=== PATIENT | female | born 1955 | race Caucasian/White ===

== ENCOUNTER 2025-01-11 11:04 | Day surgery (SDC) | payer OTHER, MEDICAID, SELFPAY ==
--- NOTE | 2025-01-08 08:10 | EKG_ITS ---
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
[2025-01-08 11:13] VITALS: BMI 22.9
[2025-01-08 12:11] LABS: Collection Type, Urine Clean Catch; Squamous Epithelial Cell,Urine 0 /hpf (0-5)
[2025-01-08 13:19] LABS: Basophils # (Auto) 0.1 Thou/mm3 (0.0-0.2); Basophils % (Auto) 1 % (0-2.5); Eosinophils # (Auto) 0.5 Thou/mm3 (0.0-0.5); Eosinophils % (Auto) 7 % (0-10); Hematocrit 40.4 % (36.0-46.0); Hemoglobin 13.7 g/dL (12.0-16.0); Immature Granulocytes % (Auto) 0 % (0-0); Immature Granulocytes Auto 0.02 Thou/mm3 (0.00-0.00); Lymphocytes # (Auto) 2.4 Thou/mm3 (1.0-4.8); Lymphocytes % (Auto) 35 % (10-50); Mean Corpuscular HGB Conc 33.9 g/dl (31.0-37.0); Mean Corpuscular Hemoglobin 29.6 pg (25.0-35.0); Mean Corpuscular Volume 87 fL (80-100); Monocytes # (Auto) 0.5 Thou/mm3 (0.0-0.8); Monocytes % (Auto) 7 % (0-12); Neutrophils # (Auto) 3.4 Thou/mm3 (1.8-7.7); Neutrophils % (Auto) 50 % (37-80); Nucleated Red Blood Cell % 0 /100 WBC (0); Platelet Count 346 Thou/mm3 (140-440); Red Blood Count 4.63 Miln/mm3 (4.00-5.20); White Blood Count 6.8 Thou/mm3 (3.6-11.0)
[2025-01-08 13:24] LABS: Amorphous Crystals,Urine Present (Absent); Bilirubin,Urine Negative (Negative); Blood,Urine Negative (Negative); Color,Urine Lt-Yellow (Lt Yel-Yel); Glucose, Urine Negative (Negative); Ketones,Urine Negative (Negative); Leukocyte Esterase,Urine Negative (Negative); Nitrite,Urine Negative (Negative); PH,Urine 7.5 (5.0-7.0); Protein,Urine Negative (Neg - Trace); RBC,Urine 4 /hpf (0-3); Specific Gravity,Urine 1.023 (1.001-1.035); Urobilinogen,Urine Negative mg/dL (0.0-1.0); WBC,Urine 11 /hpf (0-5)
[2025-01-08 13:26] LABS: INR 1.1 (0.9-1.3); Partial Thromboplastin Time 30.5 Seconds (22.0-36.0); Prothrombin Time 11.6 Seconds (9.0-12.2)
[2025-01-08 13:31] LABS: Alanine Aminotransferase 19 U/L (10-49); Albumin, Serum 5.2 gm/dL (3.4-4.8); Albumin/Globulin Ratio 2.1 (1.2-2.2); Alkaline Phosphatase 64 U/L (46-116); Anion Gap 9 (7-16); Aspartate Amino Transferase 26 U/L (0-34); BUN/Creatinine Ratio 19 Ratio (12-20); Bilirubin,Total 0.7 mg/dL (0.3-1.2); Blood Urea Nitrogen 17 mg/dL (9-23); Calcium 10.4 mg/dL (8.3-10.6); Calcium (Corrected) 10.4 mg/dL (8.5-10.1); Carbon Dioxide 28.3 mMol/L (20.0-31.0); Chloride 102 mMol/L (98-107); Creatinine (Component) 0.9 mg/dL (0.6-1.3); Estimated Creatinine Clearance 47.3 mL/min (>60); Globulin 2.5 gm/dL (2.3-3.5); Glucose 100 mg/dL (74-106); Osmolality,Calculated 279 (275-295); Potassium 4.3 mMol/L (3.4-5.1); Sodium 139 mMol/L (136-145); Total Protein 7.7 gm/dL (5.7-8.2); eGFR > 60 See Note
[2025-01-08 13:32] LABS: Clarity,Urine Hazy (Clear/Hazy)
--- NOTE | 2025-01-08 14:32 | SUR.PREOP ---
Cardiac records and history reviewed with Dr Newby.
[2025-01-11] VITALS (8 sets, daily range): BP systolic 96–113; BP diastolic 63–73; PULSE 74–96; RESP 14–20; TEMP 36.7–36.9; O2SAT 95–99; BMI 22.8
--- NOTE | 2025-01-11 15:35 | PD.SUROPNT ---
Date of Procedure 01/11/25 Pre Op Diagnosis Cholecystitis cholelithiasis Post Op Diagnosis Cholecystitis cholelithiasis with significant amount of peritoneal adhesions Procedure Laparoscopic cholecystectomy and laparoscopic lysis of adhesions on January 11, 2025 Findings This patient has a distended gallbladder with stones. A significant amount of adhesions were present to the gallbladder as well as to the right upper quadrant of the abdomen. This required extensive lysis of adhesions laparoscopically in order to open the operative field. There were no other positive findings. Procedure Description In the preop area the procedure was discussed with the patient including risks benefits and alternatives. The risks include possible laparotomy, bleeding, infection bile duct injury and bile leak. Patient may require ERCP for retained stone or a bile leak. The anesthesia risks are to be explained to the patient by the anesthesiologist. Informed consent was obtained. The patient was positioned supine on the operating table and general anesthesia was administered in a satisfactory manner by the anesthesiologist. A timeout procedure was carried out. The patient is positioned in the reverse Trendelenburg position with the right side up. Orogastric tube is introduced into the stomach to decompress the stomach. Prophylactic antibiotics were given in timely manner. Antiembolism measures were taken. The abdomen chest and groin regions were prepped and draped in usual manner. A supraumbilical vertical incision was made and deepened through the layers of abdominal wall and open laparoscopic procedure is carried out. The balloon catheter was introduced and pneumoperitoneum is achieved. A 30? scope was used. Under direct vision right subxiphoid, trocar is introduced. There is significant amount of scar tissue and adhesions obscuring the right upper quadrant. It required extensive lysis of adhesions to clear the parietal peritoneal surfaces on the right upper quadrant. This was done with the harmonic ultrasonic lico. After this the midclavicular and anterior axillary line trochars were introduced. The gallbladder is then lifted up and a laparoscopic lysis of adhesions was carried out between the omentum and the gallbladder and liver. The gallbladder is freed from the adhesions and the jonas hepatis is exposed. The triangle of Calot is gently dissected and the artery to cystic duct is divided with harmonic ultrasonic lico. There is a significant amount of chronic scar tissue in the jonas hepatis that made the dissection and procedures much slower. The posterior view of safety was achieved. The cystic artery and cystic duct are identified individually and they were ligated close to the gallbladder with hemoclips. There was an accessory cystic artery as well as multiple branches of the cystic artery proper. They were all individually controlled and divided. The cystic artery and the cystic duct are divided between the hemoclips close to the gallbladder. Care was taken to avoid tenting of the common duct. There is a significant length of cystic duct stump towards the common bile duct. The gallbladder is dissected and lifted up from the liver bed using harmonic ultrasonic lico. The gallbladder bed hemostasis is achieved. The gallbladder is retrieved out of the peritoneal cavity in a specimen bag. The balloon cannula is reintroduced and pneumoperitoneum is reestablished. The peritoneal cavity is thoroughly irrigated with sterile saline solution and hemostasis again ascertained. All the cannulas are removed under direct vision there is no bleeding from the cannula sites. The linea alba repair is carried out with the 0 Vicryl continuous suture. The subcutaneous tissues approximated by a 3-0 chromic and skin by 4-0 monocril subcuticular stitch. For the rest of the trocar site incisions are closed in 2 layers with a 3-0 chromic and 4-0 monocril subcuticular stitch. Steri-Strips are applied. Sterile dressings are applied. Complications none. Patient is transferred to the recovery room in a satisfactory condition. Anesthesia GETA Drains None. Implants None. Pathology / specimen Other (Gallbladder with contents) Estimated Blood Loss 5 Condition Stable Disposition PACU Surgeon Jesus Manuel Jennings MD Surgical Staff Operation Date: 01/11/25 14:45 Case Staff Anesthesiologist: Madi Newby RNsolution design engineer: Chaya Amador surgical attendant with a surgical technology student
--- NOTE | 2025-01-11 15:38 | SUR.PHASEI ---
1538 Patient arrived to recovery resting comfortably in [facility], drowsy and able to respond to verbal prompting, on oxygen 2L via nasal cannula, breathing unlabored, vital signs stable, denies pain, dressing intact to abdomen; steri-strips, gauze, tegaderm, no bleeding noted, denies nausea, report received from Madelyn CALLE and Dr. Newby
[2025-01-11] MEDS: fentaNYL CIT INJ 50 mCg/ML AMP 2ML IV (16:08)
--- NOTE | 2025-01-11 16:38 | SUR.PHASEII ---
1638 Report given to Rica Munoz RN, patient awake and alert, breathing unlabored, vital signs stable, per patient her pain is tolerable, dressing intact; no bleeding noted, denies nausea.
--- NOTE | 2025-01-11 16:50 | SUR.PHASEII ---
Pt. meets criteria for discharge, VSS, c/o pain 3/10 but tolerable, VSS, IV discontinued without complications, lap sites CDI. Discharge instructions provided by Lucy Combs RN to pt. and pt.'s brother, verbalized understanding. Pt. escorted to vehicle via w/c with all of belongings by staff.
== END 2025-01-11 16:50 | disposition home or self-care (01) ==
PROVIDERS: PCP Family Medicine; Referring Provider Specialist; Visit Provider Specialist
PROC: 0FT44ZZ Resection of Gallbladder, Percutaneous Endoscopic Approach (ICD-10-PCS; CPT 47562; principal; 2025-01-11 14:30)
DX: K80.10 Calculus of gallbladder with chronic cholecystitis without obstruction (principal); K66.0 Peritoneal adhesions (postprocedural) (postinfection); Z01.810 Encounter for preprocedural cardiovascular examination
CPT/HCPCS: 47562; 36415; 80053; 81001; 85025; 85610; 85730; 93005; A4217; A4649; J0131; J0694; J1100; J2405; J2704; J2710; J3010; J3490; J1596; J1805